=== PATIENT | male | born 1975 | race Caucasian/White ===

== ENCOUNTER 2020-05-14 13:39 | Inpatient (IN) | payer MEDICARE, OTHER ==
[~2020-05-14] VITALS: Ht 182.9 cm; Wt 95.5 kg
[~2020-05-14 13:39] MED LIST: VICOT
[2020-05-14] MEDS ORDERED: GABA-1201 PO (14:44)
[2020-05-14] MEDS ORDERED: BACL10TA PO (14:44)
[2020-05-14] MEDS ORDERED: TAMS-13 PO (14:44)
[2020-05-14] MEDS ORDERED: GABA-1181 PO (14:44)
[2020-05-14] MEDS ORDERED: APIX5TAB PO (14:44)
[2020-05-14] MEDS ORDERED: MIDAZOLAM HCL 5 MG/ML VIAL IM ONE (15:45)
[2020-05-14 16:39] LABS: COVID AG,FIA SOURCE NASOPHARYNGEAL
[2020-05-14] MEDS ORDERED: MIDAZOLAM HCL 2 MG/2 ML VIAL IVP ONE (17:30)
[2020-05-14] MEDS ORDERED: MIDAZOLAM HCL 2 MG/2 ML VIAL IM ONE ×4 (19:00→22:15)
[2020-05-14 19:24] LABS: SALICYLATE < 0.2 mg/dL (2.8-20.0)
[2020-05-14 19:29] LABS: BASOPHILS % (AUTO) 0.1 % (0.0-2.0); EOSINOPHILS % (AUTO) 0.2 % (1.0-6.0); HEMATOCRIT 41.4 % (41-53); HEMOGLOBIN 13.3 g/dL (13.5-17.5); LYMPHOCYTES # (AUTO) 0.9 K/uL (1.0-4.8); LYMPHOCYTES % (AUTO) 7.9 % (22.0-44.0); MEAN CORPUSCULAR VOLUME 81 fL (80-100); MONOCYTES # (AUTO) 0.9 K/uL (0.1-1.0); MONOCYTES % (AUTO) 8.3 % (2.0-9.0); NEUTROPHILS # (AUTO) 9.4 K/uL (1.8-7.7); NEUTROPHILS % (AUTO) 83.5 % (40.0-70.0); PLATELET COUNT (AUTO) 289 K/uL (150-450); RED CELL DISTRIBUTION WIDTH 19.6 % (11.5-14.5)
[2020-05-14 19:45] LABS: ALANINE AMINOTRANSFERASE 11 U/L (12-78); ALBUMIN 3.3 g/dL (3.4-5.0); ALKALINE PHOSPHATASE 63 U/L (46-116); ANION GAP 9 mmol/L (8-16); ASPARTATE AMINOTRANSFERASE 18 U/L (15-37); BILIRUBIN,TOTAL 0.9 mg/dL (0.1-1.0); CARBON DIOXIDE 28 mmol/L (22-29); CHLORIDE 104 mmol/L (98-107); CREATINE KINASE, TOTAL ONLY 156 U/L (39-308); CREATININE 0.84 mg/dL (0.60-1.30); FREE T4 (FREE THYROXINE) 1.34 ng/dL (0.76-1.46); GLOMERULAR FILTR. RATE CALC > 60 mL/min (>60); GLUCOSE,RANDOM 112 mg/dL (70-110); SODIUM SERUM 141 mmol/L (136-145); THYROID STIMULATING HORMONE 0.47 uIU/mL (0.36-3.74); UREA NITROGEN, BLOOD 10 mg/dL (7-18)
[2020-05-14 19:53] LABS: ACETAMINOPHEN < 2 mcg/mL (10-30); POTASSIUM 2.9 mmol/L (3.5-5.1)
[2020-05-14] MEDS ORDERED: POTASSIUM CHLORIDE 20 MEQ ER TABLET PO ONE (20:15)
[2020-05-14 20:51] LABS: PHOSPHORUS 2.2 mg/dL (2.5-4.9)
[2020-05-14 21:36] LABS: APPEARANCE,URINE CLEAR (CLEAR); GLUCOSE, URINE (UA) NEGATIVE (NEGATIVE); KETONES,URINE TRACE mg/dL (NEGATIVE); LEUKOCYTE ESTERASE ,URINE NEGATIVE (NEGATIVE); NITRATE,URINE NEGATIVE (NEGATIVE); OCCULT BLOOD,URINE NEGATIVE (NEGATIVE); PH,URINE 6.5 (5.0-8.0); PROTEIN,URINE POS 1+ (NEGATIVE)
[2020-05-14 21:45] LABS: AMPHET/METH SCREEN,URINE NEGATIVE (NEGATIVE); BARBITURATE SCREEN, URINE NEGATIVE (NEGATIVE); BENZODIAZEPINES SCREEN,URINE POSITIVE (NEGATIVE); CANNABINOID SCREEN,URINE NEGATIVE (NEGATIVE); COCAINE SCREEN,URINE NEGATIVE (NEGATIVE); METHADONE SCREEN, URINE NEGATIVE (NEGATIVE); OPIATE SCREEN,URINE POSITIVE (NEGATIVE)
[2020-05-14 21:48] LABS: PHENCYCLIDINE SCREEN,URINE NEGATIVE (NEGATIVE)
[2020-05-14] MEDS ORDERED: LORazepam 2 MG/ML VIAL IM ONE (22:30)
[2020-05-14 22:47] LABS: BILIRUBIN,URINE PRELIM. POSITIVE (NEGATIVE)
[2020-05-14 22:49] LABS: BACTERIA,URINE None Seen /HPF (None Seen); RBC,URINE None Seen /HPF (0-2); WBC,URINE 0-2 /HPF (0-5)
[2020-05-14 22:50] LABS: SQUAMOUS EPITHELIAL CELL,UR Rare /LPF (None Seen)
[2020-05-14] MEDS ORDERED: KETAMINE HCL 50 MG/ML 10 ML VIAL IVP ONE (23:15)
[2020-05-15] MEDS ORDERED: 0.9% SODIUM CHLORIDE 10 ML SYRINGE IVP PRN (01:45)
[2020-05-15] MEDS ORDERED: ONDANSETRON HCL 4 MG/2 ML VIAL IVP PRN (01:45)
[2020-05-15] MEDS ORDERED: ACETAMINOPHEN 325 MG TABLET PO PRN (01:45)
[2020-05-15] MEDS ORDERED: LORazepam 2 MG/ML VIAL IM ONE ×2 (04:00→06:00)
[2020-05-15] MEDS ORDERED: HALOPERIDOL LACTATE 5 MG/ML VIAL IM ONE (04:00)
[2020-05-15] MEDS ORDERED: DiphenhydrAMINE HCL 50 MG/ML VIAL IM ONE (04:00)
[2020-05-15] MEDS ORDERED: TraZODone HCL 50 MG TABLET PO ONE (05:30)
[2020-05-15] MEDS ORDERED: SODIUM CHLORIDE 0.9% 1,000 ML ONE (06:21)
[2020-05-15] MEDS ORDERED: LORazepam 2 MG/ML VIAL IVP ONE ×2 (07:00→09:15)
[2020-05-15 07:36] LABS: CREATINE KINASE, TOTAL ONLY 333 U/L (39-308)
[2020-05-15] MEDS ORDERED: MAGNESIUM SULFATE 2 GM/WATER 50 ML IV PRN (07:45)
[2020-05-15] MEDS ORDERED: MAGNESIUM OXIDE 400 MG TABLET PO PRN (07:45)
[2020-05-15] MEDS ORDERED: MAGNESIUM SULFATE 4 GM/WATER 100 ML IV PRN (07:45)
[2020-05-15] MEDS ORDERED: MAGNESIUM HYDROXIDE SUSPENSION 30 ML UDCUP PO PRN (07:45)
[2020-05-15] MEDS ORDERED: SODIUM CHLORIDE 0.9% 1,000 ML IV ONE ×2 (07:45→23:45)
[2020-05-15 08:17] LABS: ALBUMIN 3.2 g/dL (3.4-5.0)
[2020-05-15] MEDS: HEPARIN SODIUM,PORCINE 5,000 UNITS/ML VIAL SQ SCH ×3 (08:36→23:45)
[2020-05-15] MEDS: PANTOPRAZOLE SODIUM 40 MG/VIAL IVP SCH (08:48)
[2020-05-15 11:12] LABS: ANION GAP 17 mmol/L (8-16); CALCIUM, TOTAL 9.2 mg/dL (8.8-10.5); CARBON DIOXIDE 23 mmol/L (22-29); CHLORIDE 106 mmol/L (98-107); CREATININE 1.05 mg/dL (0.60-1.30); GLOMERULAR FILTR. RATE CALC > 60 mL/min (>60); GLUCOSE,RANDOM 99 mg/dL (70-110); POTASSIUM 3.7 mmol/L (3.5-5.1); SODIUM SERUM 146 mmol/L (136-145); UREA NITROGEN, BLOOD 13 mg/dL (7-18)
[2020-05-15] MEDS: LORazepam 2 MG/ML VIAL IVP PRN ×3 (12:24→23:49)
[2020-05-15 15:02] VITALS: BP 162/55
[2020-05-15] MEDS ORDERED: HALOPERIDOL 5 MG TABLET PO PRN (17:00)
[2020-05-15 19:34] VITALS: BP 143/87
[2020-05-15] MEDS: GABAPENTIN 400 MG CAPSULE PO SCH (19:48)
[2020-05-15] MEDS ORDERED: SODIUM CHLORIDE 0.9% 1,000 ML IV SCH (23:30)
[2020-05-16] VITALS (7 sets, daily range): BP systolic 128–144; BP diastolic 77–89
[2020-05-16] MEDS: LORazepam 2 MG/ML VIAL IVP PRN ×3 (05:30→23:24)
[2020-05-16 08:09] LABS: BASOPHILS % (AUTO) 0.4 % (0.0-2.0); EOSINOPHILS % (AUTO) 0 % (1.0-6.0); HEMATOCRIT 36.6 % (41-53); HEMOGLOBIN 11.9 g/dL (13.5-17.5); LYMPHOCYTES # (AUTO) 1.6 K/uL (1.0-4.8); LYMPHOCYTES % (AUTO) 18.5 % (22.0-44.0); MEAN CORPUSCULAR HEMOGLOBIN 26.4 pg (26.0-34.0); MEAN CORPUSCULAR HGB CONC 32.5 G/dL (31.0-37.0); MEAN CORPUSCULAR VOLUME 81 fL (80-100); MONOCYTES % (AUTO) 11.4 % (2.0-9.0); NEUTROPHILS # (AUTO) 6.1 K/uL (1.8-7.7); NEUTROPHILS % (AUTO) 69.7 % (40.0-70.0); PLATELET COUNT (AUTO) 299 K/uL (150-450); RED CELL DISTRIBUTION WIDTH 19.4 % (11.5-14.5)
[2020-05-16 08:29] LABS: ALANINE AMINOTRANSFERASE 17 U/L (12-78); ALKALINE PHOSPHATASE 55 U/L (46-116); ANION GAP 17 mmol/L (8-16); ASPARTATE AMINOTRANSFERASE 51 U/L (15-37); CALCIUM, TOTAL 8.9 mg/dL (8.8-10.5); CARBON DIOXIDE 20 mmol/L (22-29); CHLORIDE 116 mmol/L (98-107); CREATININE 0.99 mg/dL (0.60-1.30); GLOMERULAR FILTR. RATE CALC > 60 mL/min (>60); GLUCOSE,RANDOM 82 mg/dL (70-110); POTASSIUM 3.2 mmol/L (3.5-5.1); SODIUM SERUM 153 mmol/L (136-145); TOTAL PROTEIN, SERUM 8.2 g/dL (6.4-8.2); UREA NITROGEN, BLOOD 19 mg/dL (7-18)
[2020-05-16] MEDS: GABAPENTIN 400 MG CAPSULE PO SCH ×5 (09:00→21:02)
[2020-05-16] MEDS: HEPARIN SODIUM,PORCINE 5,000 UNITS/ML VIAL SQ SCH ×3 (09:00→23:24)
[2020-05-16] MEDS: PANTOPRAZOLE SODIUM 40 MG/VIAL IVP SCH (09:02)
[2020-05-16] MEDS ORDERED: SODIUM CHLORIDE 0.45% 1,000 ML IV SCH (09:30)
[2020-05-16] MEDS ORDERED: ACETAMINOPHEN 650 MG RECTAL SUPPOSITORY PR ONE (09:30)
[2020-05-16] MEDS: DEXTROSE 5%-WATER 1,000 ML IV SCH (11:54)
[2020-05-16] MEDS: POTASSIUM CHL 10 MEQ/WATER 50 ML IV PRN ×2 (12:07→13:39)
[2020-05-16 20:24] LABS: GLUCOMETER DEV NAME(LOC) 6N.2; GLUCOSE,POINT OF CARE 84 MG/DL (70-110)
[2020-05-16] MEDS: POTASSIUM CHLORIDE 20 MEQ ER TABLET PO PRN (21:02)
[2020-05-17 00:12] LABS: APPEARANCE,URINE CLOUDY (CLEAR); GLUCOSE, URINE (UA) NEGATIVE (NEGATIVE); KETONES,URINE 40 mg/dL (NEGATIVE); LEUKOCYTE ESTERASE ,URINE NEGATIVE (NEGATIVE); NITRATE,URINE NEGATIVE (NEGATIVE); OCCULT BLOOD,URINE NEGATIVE (NEGATIVE); PH,URINE 5.5 (5.0-8.0); PROTEIN,URINE TRACE (NEGATIVE); UROBILINOGEN,URINE 0.2 mg/dL (<=1.0)
[2020-05-17 00:15] LABS: BILIRUBIN,URINE PRELIM. POSITIVE (NEGATIVE)
[2020-05-17] MEDS: ACETAMINOPHEN 325 MG TABLET PO PRN ×2 (00:23→14:43)
[2020-05-17 00:28] LABS: BACTERIA,URINE None Seen /HPF (None Seen); MUCUS,URINE Moderate LPF (None Seen); RBC,URINE None Seen /HPF (0-2); SQUAMOUS EPITHELIAL CELL,UR Rare /LPF (None Seen); WBC,URINE 0-2 /HPF (0-5)
[2020-05-17] MEDS: POTASSIUM CHL 10 MEQ/WATER 50 ML IV PRN ×3 (03:06→05:44)
[2020-05-17] MEDS: DEXTROSE 5%-WATER 1,000 ML IV SCH (04:41)
[2020-05-17 05:18] VITALS: BP 135/84
[2020-05-17 05:39] LABS: GLUCOMETER DEV NAME(LOC) 4E.2; GLUCOSE,POINT OF CARE 102 MG/DL (70-110)
[2020-05-17 07:01] LABS: ANION GAP 13 mmol/L (8-16); CALCIUM, TOTAL 8.8 mg/dL (8.8-10.5); CARBON DIOXIDE 24 mmol/L (22-29); CHLORIDE 110 mmol/L (98-107); CREATININE 1.01 mg/dL (0.60-1.30); GLOMERULAR FILTR. RATE CALC > 60 mL/min (>60); GLUCOSE,RANDOM 164 mg/dL (70-110); POTASSIUM 3.3 mmol/L (3.5-5.1); SODIUM SERUM 147 mmol/L (136-145); UREA NITROGEN, BLOOD 16 mg/dL (7-18)
[2020-05-17 08:21] VITALS: BP 140/79
[2020-05-17] MEDS: HEPARIN SODIUM,PORCINE 5,000 UNITS/ML VIAL SQ SCH ×2 (08:56→17:32)
[2020-05-17] MEDS: GABAPENTIN 400 MG CAPSULE PO SCH ×4 (08:57→20:49)
[2020-05-17] MEDS: POTASSIUM CHLORIDE 20 MEQ ER TABLET PO PRN (08:57)
[2020-05-17] MEDS: LORazepam 2 MG TABLET PO PRN (14:43)
[2020-05-17] MEDS: BISMUTH SUBSALICYLATE 262 MG CHEWABLE TABLET CHEW PRN ×2 (17:50→18:49)
[2020-05-17 19:58] VITALS: BP 120/84
[2020-05-18] MEDS: HEPARIN SODIUM,PORCINE 5,000 UNITS/ML VIAL SQ SCH ×3 (00:15→15:39)
[2020-05-18] MEDS: DEXTROSE 5%-WATER 1,000 ML IV SCH ×2 (02:00→22:47)
[2020-05-18] MEDS: BISMUTH SUBSALICYLATE 262 MG CHEWABLE TABLET CHEW PRN ×2 (03:01→15:40)
[2020-05-18] MEDS: LORazepam 2 MG TABLET PO PRN ×3 (03:01→21:13)
[2020-05-18 04:00] VITALS: BP 109/69
[2020-05-18] MEDS: ACETAMINOPHEN 325 MG TABLET PO PRN ×3 (05:23→21:16)
[2020-05-18 07:22] VITALS: BP 122/72
[2020-05-18] MEDS: GABAPENTIN 400 MG CAPSULE PO SCH ×4 (09:20→22:41)
[2020-05-18] MEDS: PANTOPRAZOLE SODIUM 40 MG DR TABLET PO SCH (09:20)
[2020-05-18 15:03] VITALS: BP 118/68
[2020-05-18 20:13] VITALS: BP 117/80
[2020-05-19] MEDS: HEPARIN SODIUM,PORCINE 5,000 UNITS/ML VIAL SQ SCH ×2 (00:06→08:23)
[2020-05-19 00:17] VITALS: BP 112/63
[2020-05-19] MEDS: LORazepam 2 MG TABLET PO PRN ×2 (00:25→08:23)
[2020-05-19 04:30] VITALS: BP 109/64
[2020-05-19 07:26] VITALS: BP 114/65
[2020-05-19] MEDS: GABAPENTIN 400 MG CAPSULE PO SCH ×2 (08:23→13:00)
[2020-05-19] MEDS: PANTOPRAZOLE SODIUM 40 MG DR TABLET PO SCH (08:23)
[2020-05-19] MEDS: DEXTROSE 5%-WATER 1,000 ML IV SCH (08:34)
[2020-05-19] MEDS ORDERED: GABA-1201 PO (11:54)
[2020-05-19] MEDS ORDERED: HEPA500018 SQ (11:56)
[2020-05-19] MEDS ORDERED: PANT-31 PO (11:57)
[2020-05-19 11:58] LABS: BASOPHILS % (AUTO) 0.4 % (0.0-2.0); EOSINOPHILS % (AUTO) 4.3 % (1.0-6.0); HEMATOCRIT 36.3 % (41-53); HEMOGLOBIN 11.6 g/dL (13.5-17.5); LYMPHOCYTES # (AUTO) 1.5 K/uL (1.0-4.8); LYMPHOCYTES % (AUTO) 29.8 % (22.0-44.0); MEAN CORPUSCULAR HGB CONC 31.9 G/dL (31.0-37.0); MEAN CORPUSCULAR VOLUME 82 fL (80-100); MONOCYTES # (AUTO) 0.4 K/uL (0.1-1.0); MONOCYTES % (AUTO) 8.2 % (2.0-9.0); NEUTROPHILS # (AUTO) 2.9 K/uL (1.8-7.7); NEUTROPHILS % (AUTO) 57.3 % (40.0-70.0); PLATELET COUNT (AUTO) 249 K/uL (150-450); RED BLOOD CELL COUNT(AUTO) 4.44 MIL/uL (4.50-5.90); RED CELL DISTRIBUTION WIDTH 18.2 % (11.5-14.5)
[2020-05-19] MEDS ORDERED: ACET650S24 PR (11:58)
[2020-05-19] MEDS ORDERED: ACET-2865 PO (11:59)
[2020-05-19] MEDS ORDERED: [UNRECOGNIZED DRUG - CODE] PO (12:02)
[2020-05-19] MEDS ORDERED: MOM30 PO (12:04)
[2020-05-19 12:14] LABS: ANION GAP 8 mmol/L (8-16); CALCIUM, TOTAL 8.2 mg/dL (8.8-10.5); CARBON DIOXIDE 26 mmol/L (22-29); CHLORIDE 103 mmol/L (98-107); CREATININE 0.72 mg/dL (0.60-1.30); GLOMERULAR FILTR. RATE CALC > 60 mL/min (>60); GLUCOSE,RANDOM 111 mg/dL (70-110); POTASSIUM 3.9 mmol/L (3.5-5.1); SODIUM SERUM 137 mmol/L (136-145); UREA NITROGEN, BLOOD 6 mg/dL (7-18)
== END 2020-05-19 13:43 | DRG 92 ==
LOC: EMS 13:54 → 6N 05-15 01:27
PROVIDERS: ADMIT Internal Medicine; ATTEND Internal Medicine
DX: G92 Toxic encephalopathy (principal); E87.0 Hyperosmolality and hypernatremia; E87.6 Hypokalemia; F19.10 Other psychoactive substance abuse, uncomplicated; Z91.19 Patient's noncompliance with other medical treatment and regimen; N40.0 Benign prostatic hyperplasia without lower urinary tract symptoms; Z79.899 Other long term (current) drug therapy; Z87.891 Personal history of nicotine dependence; Z79.01 Long term (current) use of anticoagulants; Z20.822 Contact with and (suspected) exposure to COVID-19; F10.20 Alcohol dependence, uncomplicated; Y90.9 Presence of alcohol in blood, level not specified
CPT/HCPCS: 70450; 83735; 84100; 84132; 84439; 84443; 87040; 87426; 92610; 97161; 97530; 99291; C9113; G0480; G0481; J1200; J1630; J1644; J2060; J2250; J3480; J3490; J7030; J7060; 36415-L1; 36415-TC; 71045-TC; U0003